=== PATIENT | female | born 1975 | race Caucasian/White ===

== ENCOUNTER 2022-11-07 16:07 | Emergency (ER) | payer OTHER ==
[~2022-11-07] VITALS: Ht 157.5 cm; Wt 41.7 kg
[2022-11-07 16:39] VITALS: BP 129/80
== END 2022-11-07 17:36 | disposition home or self-care (01) ==
LOC: ER 16:07
DX: S22.059A Unspecified fracture of T5-T6 vertebra, initial encounter for closed fracture (principal); V59.9XXA Occupant (driver) (passenger) of pick-up truck or van injured in unspecified traffic accident, initial encounter
CPT/HCPCS: 71046; 99284-25